=== PATIENT | female | born 1930 | race Caucasian/White ===

== ENCOUNTER → 2017-05-08 | Outpatient (CLI) | payer MEDICARE, OTHER ==
--- NOTE | 2017-05-08 14:09 | CT ---
EXAMINATION TYPE: CT chest wo con DATE OF EXAM: 05/08/2017 COMPARISON: Previous study dated 05/02/2016. 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 Automated Exposure Control for Dose Reduction was Utilized. TECHNIQUE: CT scan of the thorax is performed without IV contrast. FINDINGS: There is calcified granuloma in the right middle lobe. Ill-defined lesion described previou sly in the right middle lobe is seen again today unchanged in appearance. No other parenchymal nodule s are seen. There is no significant axillary, internal mammary, mediastinal or hilar adenopathy. There is no pleu ral or pericardial fluid. The heart is upper limits of normal in size. There is a small hiatal hernia. There is a 2.5 cm simple appearing cyst in the left lobe of the liver. A second, stable 8.4 mm low at tenuating lesion is noted right in the dome of the right lobe of the liver. Questionable lesion adjac ent to the larger lesion first described is not evident on this examination. The gallbladder is been removed. There is a 2.5 cm exophytic lesion arising in the left kidney. This likely represents a cyst. There are sclerotic endplate changes at the T12-L1 level. These are stable. IMPRESSION: 1. NO CHANGE IN THE APPEARANCE OF THE PATIENT'S RIGHT-SIDED PULMONARY NODULES. 2. SMALL HIATAL HERNIA. 3. CYSTIC CHANGE IN THE LIVER AND LEFT KIDNEY COULD BE CONFIRMED WITH ULTRASOUND.
== END | disposition home or self-care (01) ==
LOC: RADCTMAIN 12:54
PROVIDERS: ATTEND Internal Medicine Pulmonary Disease
DX: R91.8 Other nonspecific abnormal finding of lung field (principal)
CPT/HCPCS: 71250

== ENCOUNTER → 2018-04-23 | Outpatient (CLI) | payer MEDICARE, OTHER ==
[2018-04-23 12:21] LABS: Basophils # (A) 0.1 k/uL (0-0.2); Basophils % (A) 1 %; Eosinophils # (A) 0.2 k/uL (0-0.7); Eosinophils % (A) 3 %; HCT 37.9 % (34.0-46.0); HGB 12.3 gm/dL (11.4-16.0); Lymphocytes # (A) 1.7 k/uL (1.0-4.8); Lymphocytes % (A) 30 %; MCH 28.8 pg (25.0-35.0); MCHC 32.4 g/dL (31.0-37.0); MCV 88.8 fL (80.0-100.0); Mean Platelet Volume 7.6; Monocytes # (A) 0.4 k/uL (0-1.0); Monocytes % (A) 7 %; Neutrophils # (A) 3.4 k/uL (1.3-7.7); Neutrophils % (A) 58 %; Platelet Count 331 k/uL (150-450); RBC 4.27 m/uL (3.80-5.40); RDW 13.2 % (11.5-15.5); WBC 5.9 k/uL (3.8-10.6)
[2018-04-23 12:49] LABS: Calcium 10.1 mg/dL (8.4-10.2); Magnesium 2.1 mg/dL (1.6-2.3); Phosphorus 4.2 mg/dL (2.5-4.5); Potassium 4.7 mmol/L (3.5-5.1); Uric Acid 6.6 mg/dL (3.7-7.4)
== END | disposition home or self-care (01) ==
LOC: LABWHC1 11:43
PROVIDERS: ATTEND Family Medicine
DX: E55.9 Vitamin D deficiency, unspecified (principal); N18.3 Chronic kidney disease, stage 3 (moderate)
CPT/HCPCS: 36415; 80048; 82043; 82570; 83735; 83970; 84100; 84550; 85025

== ENCOUNTER → 2018-09-22 | Outpatient (CLI) | payer MEDICARE, OTHER ==
--- NOTE | 2018-09-22 14:24 | US ---
EXAMINATION TYPE: US kidneys/renal and bladder DATE OF EXAM: 09/22/2018 COMPARISON: NONE CLINICAL HISTORY: N18.3 Chronic kidney disease stage 3. EXAM MEASUREMENTS: Right Kidney: 8.6 X 4.3 X 4.7 cm Left Kidney: 8.7 x 4.2 x 3.4 cm Post Void Residual Volume: 8 mL Right Kidney: small cyst 1.0 x 0.6 x 0.8 cm Left Kidney: multiple cysts 1.1 x 0.9 x 1.5 cm, 0.8x 0.6 x 0.7cm, 2.1 x 1.7 x 2.4 cm in the upper pole, 1.8 x 2.2 x 2.4 cm in the mid pole, lateral 2.5 x 2.4 x 2.0 cm Bladder: wnl Bilateral Jets seen: Yes Normal Post Void Residual: No There is bilateral cortical renal thinning and diminished cortical medullary differentiation. There i s no evidence for hydronephrosis at this point in time. No nephrolithiasis is seen. No The urinary bladder is anechoic. Bilateral ureteral jets are seen. IMPRESSION: Sonographic sequela of medical renal disease and bilateral renal cysts. The smaller subcentimeter les ions are probable renal cysts.
== END | disposition home or self-care (01) ==
LOC: RADUSWWP 12:41
PROVIDERS: ATTEND Internal Medicine Nephrology
DX: N28.1 Cyst of kidney, acquired (principal); N18.3 Chronic kidney disease, stage 3 (moderate); N28.9 Disorder of kidney and ureter, unspecified
CPT/HCPCS: 76770

== ENCOUNTER 2018-11-12 11:04 | Emergency (ER) | payer MEDICARE, OTHER ==
[2018-11-12 11:10] VITALS: TEMP 98.8
[2018-11-12] MEDS ORDERED: SODIUM CHLORIDE 0.9% 1,000 ML IV STA (11:30)
--- NOTE | 2018-11-12 11:32 | ED ---
Dizziness HPI - General Chief Complaint: Dizziness Stated Complaint: dizziness/hypertension Time Seen by Provider: 11/12/18 11:10 Source: patient, RN notes reviewed, old records reviewed Mode of arrival: EMS Limitations: no limitations - History of Present Illness Initial Comments: This is a 8-year-old female the ER for evaluation. Today's presenting for evaluation of weakness dizziness lightheadedness, weakness on her feet. Patient denies any recent fevers denies any nausea or vomiting, no recent change in medications. Patient states she has had vertigo before she did take her vertigo pill it did not help still felt weak on her feet lightheaded and dizzy. Patient denies any complaints of chest pain headache shortness of breath or abdominal pain MD Complaint: dizziness, difficulty walking -: hour(s) Timing: gradual onset Description: sense of movement, "room spinning", off-balance, difficulty walking History of Same: Yes History of Trauma: No Severity: moderate Improves With: remaining still Worsens With: movement Associated Symptoms: weakness - Related Data Home Medications Medication Instructions Recorded Confirmed Aspirin EC [Ecotrin Low Dose] 81 mg PO HS 11/12/18 11/12/18 Atorvastatin [Lipitor] 10 mg PO HS 11/12/18 11/12/18 Cholecalciferol [Vitamin D3] 5,000 unit PO DAILY 11/12/18 11/12/18 Losartan Potassium 100 mg PO DAILY 11/12/18 11/12/18 Metoprolol Succinate [Toprol Xl] 50 mg PO HS 11/12/18 11/12/18 Multivit-Min/FA/Lycopen/Lutein 1 tab PO DAILY 11/12/18 11/12/18 [Centrum Silver Tablet] Sertraline [Zoloft] 100 mg PO DAILY 11/12/18 11/12/18 Allergies Allergy/AdvReac Type Severity Reaction Status Date / Time NSAIDS (Non-Steroidal AdvReac ULCERS Verified 11/12/18 11:32 Anti-Inflamma Review of Systems ROS Statement: Those systems with pertinent positive or pertinent negative responses have been documented in the HPI. ROS Other: All systems not noted in ROS Statement are negative. Past Medical History Past Medical History: Hyperlipidemia, Hypertension, Syncope History of Any Multi-Drug Resistant Organisms: None Reported Past Surgical History: Section, Cholecystectomy Past Psychological History: No Psychological Hx Reported Smoking Status: Never smoker Past Alcohol Use History: None Reported Past Drug Use History: None Reported General Exam Limitations: no limitations General appearance: alert, in no apparent distress Head exam: Present: atraumatic, normocephalic, normal inspection Eye exam: Present: normal appearance, PERRL, EOMI. Absent: scleral icterus, conjunctival injection, nystagmus, periorbital swelling ENT exam: Present: normal exam, mucous membranes moist Neck exam: Present: normal inspection. Absent: tenderness, meningismus, lymphadenopathy Respiratory exam: Present: normal lung sounds bilaterally. Absent: respiratory distress, wheezes, rales, rhonchi, stridor Cardiovascular Exam: Present: regular rate, normal rhythm, normal heart sounds. Absent: systolic murmur, diastolic murmur, rubs, gallop, clicks GI/Abdominal exam: Present: soft, normal bowel sounds. Absent: distended, tenderness, guarding, rebound, rigid Extremities exam: Present: normal inspection, full ROM, normal capillary refill. Absent: tenderness, pedal edema, joint swelling, calf tenderness Back exam: Present: normal inspection Neurological exam: Present: alert, oriented X3, CN II-XII intact Psychiatric exam: Present: normal affect, normal mood Skin exam: Present: warm, dry, intact, normal color. Absent: rash Course Vital Signs 11/12/18 11:06 Temperature 98.8 F Pulse Rate 98 Respiratory 18 Rate Blood Pressure 141/84 O2 Sat by Pulse 98 Oximetry - Reevaluation(s) Reevaluation #1: 11/12/18 11:40 Medical record is reviewed noncontributory Reevaluation #2: 11/12/18 11:40 Patient denies any current complaints Reevaluation #3: 11/12/18 12:31 Spoke with patient's and patient's family at length regarding diagnosis, questions are answered Reevaluation #4: 11/12/18 12:31 Spoke with [facility] accepting of transfer EKG Findings - EKG Comments: EKG Findings:: EKG shows sinus rhythm rate of 60, MS 162, QRS 70, QTc 460 Medical Decision Making - Medical Decision Making 88 female the ER for evaluation. Patient was essay for evaluation of dizziness , positive intracranial hemorrhage. Patient will be transferred for neurosurgical evaluation and treatment - Lab Data Result diagrams: 11/12/18 11:14 11/12/18 11:14 Lab Results 11/12/18 11/12/18 11/12/18 Range/Units 11:14 11:14 11:14 WBC 6.7 (3.8-10.6) k/uL RBC 4.30 (3.80-5.40) m/uL Hgb 12.7 (11.4-16.0) gm/dL Hct 38.8 (34.0-46.0) % MCV 90.4 (80.0-100.0) fL MCH 29.5 (25.0-35.0) pg MCHC 32.6 (31.0-37.0) g/dL RDW 13.3 (11.5-15.5) % Plt Count 301 (150-450) k/uL Neutrophils % 59 % Lymphocytes % 29 % Monocytes % 6 % Eosinophils % 4 % Basophils % 1 % Neutrophils # 4.0 (1.3-7.7) k/uL Lymphocytes # 1.9 (1.0-4.8) k/uL Monocytes # 0.4 (0-1.0) k/uL Eosinophils # 0.3 (0-0.7) k/uL Basophils # 0.0 (0-0.2) k/uL PT (9.0-12.0) sec INR (<1.2) APTT (22.0-30.0) sec Sodium 144 (137-145) mmol/L Potassium 5.2 H (3.5-5.1) mmol/L Chloride 107 (98-107) mmol/L Carbon Dioxide 30 (22-30) mmol/L Anion Gap 7 mmol/L BUN 32 H (7-17) mg/dL Creatinine 1.13 H (0.52-1.04) mg/dL Est GFR (CKD-EPI)AfAm 51 (>60 ml/min/1.73 sqM) Est GFR (CKD-EPI)NonAf 44 (>60 ml/min/1.73 sqM) Glucose 100 H (74-99) mg/dL Plasma Lactic Acid Gonsalo (0.7-2.0) mmol/L Calcium 9.8 (8.4-10.2) mg/dL Phosphorus 4.0 (2.5-4.5) mg/dL Magnesium 1.9 (1.6-2.3) mg/dL Total Bilirubin 0.4 (0.2-1.3) mg/dL AST 32 (14-36) U/L ALT 27 (9-52) U/L Alkaline Phosphatase 96 (38-126) U/L Total Creatine Kinase 29 L (30-135) U/L Total Protein 7.0 (6.3-8.2) g/dL Albumin 4.1 (3.5-5.0) g/dL 11/12/18 11/12/18 Range/Units 11:14 12:00 WBC (3.8-10.6) k/uL RBC (3.80-5.40) m/uL Hgb (11.4-16.0) gm/dL Hct (34.0-46.0) % MCV (80.0-100.0) fL MCH (25.0-35.0) pg MCHC (31.0-37.0) g/dL RDW (11.5-15.5) % Plt Count (150-450) k/uL Neutrophils % % Lymphocytes % % Monocytes % % Eosinophils % % Basophils % % Neutrophils # (1.3-7.7) k/uL Lymphocytes # (1.0-4.8) k/uL Monocytes # (0-1.0) k/uL Eosinophils # (0-0.7) k/uL Basophils # (0-0.2) k/uL PT 9.5 (9.0-12.0) sec INR 0.9 (<1.2) APTT 25.0 (22.0-30.0) sec Sodium (137-145) mmol/L Potassium (3.5-5.1) mmol/L Chloride (98-107) mmol/L Carbon Dioxide (22-30) mmol/L Anion Gap mmol/L BUN (7-17) mg/dL Creatinine (0.52-1.04) mg/dL Est GFR (CKD-EPI)AfAm (>60 ml/min/1.73 sqM) Est GFR (CKD-EPI)NonAf (>60 ml/min/1.73 sqM) Glucose (74-99) mg/dL Plasma Lactic Acid Gonsalo 1.0 (0.7-2.0) mmol/L Calcium (8.4-10.2) mg/dL Phosphorus (2.5-4.5) mg/dL Magnesium (1.6-2.3) mg/dL Total Bilirubin (0.2-1.3) mg/dL AST (14-36) U/L ALT (9-52) U/L Alkaline Phosphatase (38-126) U/L Total Creatine Kinase (30-135) U/L Total Protein (6.3-8.2) g/dL Albumin (3.5-5.0) g/dL - Radiology Data Radiology results: report reviewed (CT brain is positive for intracranial hemorrhage), image reviewed Critical Care Time Critical Care Time: Yes Total Critical Care Time: 31 Disposition Clinical Impression: Intracranial hemorrhage Narrative: Left Pontine Brainstem Hemorrhage Disposition: OTHER INSTITUTION NOT DEFINED Condition: Serious Is patient prescribed a controlled substance at d/c from ED?: No Referrals: Vannessa Hercules MD [Primary Care Provider] - 1-2 days - Out of Hospital Transfer - Req. Specs Out of Hospital Transfer - Requested Specifics: Other [facility] ([facility])
--- NOTE | 2018-11-12 12:01 | CT ---
EXAMINATION TYPE: CT brain wo con DATE OF EXAM: 11/12/2018 HISTORY: Terrible headache CT DLP: 1007.4 mGycm. Automated Exposure Control for Dose Reduction was Utilized. TECHNIQUE: CT scan of the head is performed without contrast. COMPARISON: None. FINDINGS: There is hyperdense 1.8 x 1.6 transverse x 1.2 cm craniocaudal dimension focus left super ior arielle worrisome for acute intraparenchymal hemorrhage or hemorrhagic infarct axial image 16, sagit caden image 36 and coronal image 39. There is diffuse ventricular and sulcal prominence consistent with diffuse age-related cerebral atrophy. Atrophy is slightly more prominent over the bilateral frontal lobes . There is low-attenuation in the periventricular white matter consistent with chronic small ve ssel ischemic change. The globes are intact and the visualized sinuses are clear. IMPRESSION: There is 1.8 cm acute left brainstem or superior pontine hemorrhage. Critical results communicated to Dr. Mijares via telephone at time of dictation.
[2018-11-12 12:08] LABS: Basophils % (A) 1 %; Eosinophils # (A) 0.3 k/uL (0-0.7); Eosinophils % (A) 4 %; HCT 38.8 % (34.0-46.0); HGB 12.7 gm/dL (11.4-16.0); Lymphocytes # (A) 1.9 k/uL (1.0-4.8); Lymphocytes % (A) 29 %; MCH 29.5 pg (25.0-35.0); MCHC 32.6 g/dL (31.0-37.0); MCV 90.4 fL (80.0-100.0); Mean Platelet Volume 6.7; Monocytes # (A) 0.4 k/uL (0-1.0); Monocytes % (A) 6 %; Neutrophils % (A) 59 %; Platelet Count 301 k/uL (150-450); RDW 13.3 % (11.5-15.5); WBC 6.7 k/uL (3.8-10.6)
[2018-11-12 12:22] LABS: Albumin 4.1 g/dL (3.5-5.0); Calcium 9.8 mg/dL (8.4-10.2); Magnesium 1.9 mg/dL (1.6-2.3); Potassium 5.2 mmol/L (3.5-5.1); Total Bilirubin 0.4 mg/dL (0.2-1.3)
[2018-11-12 12:25] LABS: INR 0.9 (<1.2); Prothrombin Time 9.5 sec (9.0-12.0)
[2018-11-12 12:30] LABS: Creatine Kinase 29 U/L (30-135)
[2018-11-12] MEDS ORDERED: LABETALOL SYRINGE 5 MG/ML IVP STA (12:38)
[2018-11-12 12:44] LABS: Creatine Kinase MB 0.3 ng/mL (0.0-2.4); Troponin I <0.012 ng/mL (0.000-0.034)
[2018-11-12 13:10] VITALS: BP 177/83; PULSE 66; RESP 13
== END 2018-11-12 13:20 | disposition other institution (70) ==
LOC: EC 11:04
DX: I62.9 Nontraumatic intracranial hemorrhage, unspecified (principal); E78.5 Hyperlipidemia, unspecified; I10 Essential (primary) hypertension; Z79.82 Long term (current) use of aspirin; Z79.899 Other long term (current) drug therapy; Z88.6 Allergy status to analgesic agent
CPT/HCPCS: 36415; 70450; 80053; 82550; 82553; 83605; 83735; 84100; 84443; 84484; 85025; 85610; 85730; 87040; 93005; 96374; 99291

== ENCOUNTER 2021-07-20 10:15 | Day surgery (SDC) | payer MEDICARE, OTHER ==
[2021-07-17 16:01] VITALS: BMI 33.4
--- NOTE | 2021-07-19 23:30 | HP ---
HISTORY AND PHYSICAL CHIEF COMPLAINT: Lesion on the right side of her tongue. HISTORY OF PRESENT ILLNESS: This patient is a pleasant 89-year-old female who was recently seen in my office for evaluation of a lesion on the right side of her tongue which is somewhat sore. The patient states that it has been there for at least a year. She has been seen in the past by Dr. Laurent. He biopsied the area and felt that it was not a malignancy. He had placed her on chlorhexidine mouthwash was had, which she used, but it did not help. She states that the lesion sometimes tends to come and go. 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 It was recommended that the area be excised under general anesthesia. Past medical history reveals that the patient is a nonsmoker and never has used any tobacco products. She has NO KNOWN ALLERGIES TO MEDICATIONS. Her current medications include hydralazine, atorvastatin, metoprolol, sertraline, and Prilosec. Review of systems reveals the cardiovascular system is positive for hypertension. RESPIRATORY: Negative. Gastrointestinal system is GERD. 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 The remainder of review of systems is noncontributory. Previous surgeries include a cholecystectomy, biopsy of the tongue, bilateral cataract surgery. The patient is 2 para 0 2 C-sections 0 miscarriage. PHYSICAL EXAMINATION: This patient is a very pleasant 89-year-old female who was alert, cooperative and well oriented to time and place. HEENT EXAMINATION: The patient is normocephalic. Tympanic membranes are normal. Middle ear space is free of any fluid or infection. Pupils equal, round, reactive to light and accommodation. Extraocular movements are within normal limits. Intranasal examination reveals moderate to severe septal deviation with compensatory hypertrophy of the inferior turbinates and a moderate amount of mucus on the mucous membrane draining down the posterior pharynx. Examination of oropharynx with attention to the right lateral border of tongue reveals patient has a very plaque-like area located on the right lateral border of the tongue beginning from the mid portion and extending posteriorly. No other suspicious lesions are noted. Cranial nerves 2 through 12 and the remainder of the head and neck exam are all within normal limits. Chest/cardiovascular: Both lung vicente are clear to percussion and auscultation. Patient is in regular sinus rhythm. S1 and S2 are present without any murmurs, S3s or S4s. Peripheral pulses are bilaterally symmetrical. Abdomen: There is no evidence any masses, megaly or tenderness. The abdomen is soft. Skin is unremarkable. Musculoskeletal/neurological are within normal limits. Pelvic rectal exam is deferred at this time because the patient has this done on a regular basis at her family physician's office. The remainder of physical exam is unremarkable. IMPRESSION: Lesion of the right lateral border of the tongue. PLAN: The patient is scheduled undergo excision of lesion of the right lateral border of the tongue under general anesthesia in a.m. ATTENTION RNS IN THE PRE-SURGICAL AREA: I have ordered for this patient to receive 1 gram of Ofirmev IV to be given once an intravenous line has been established. In addition, I have ordered for this patient to receive 1 gram of Ancef IV, to be given once an intravenous line has been established. If the pharmacy department sends a different pre-surgical prophylactic antibiotic to the pre-surgical area for this patient, please return that medication and cancel that order. Also make sure that the patient's account is credited appropriately. I have discussed the risks, benefits and alternative therapies for the above-mentioned procedure and for both sedation/analgesia as well as necessary blood product administration, if indicated, as they pertain to this patient. The patient has indicated his or her understanding and acceptance of the risks and procedures discussed. MMODL / IJN: [id number] /
[~2021-07-20 10:15] MED LIST: DEXAMETHASONE SOD PHOSPHATE 4 MG/ML 1 ML VIAL IV ONE; HYDROmorphone 0.5 MG/0.5 ML SYRINGE IVP PRN; LACTATED RINGERS 1,000 ML IV SCH; LIDOCAINE 1% (10MG/ML) FOR IV START INTRADERMA PRN; MIDAZOLAM 2 MG/2 ML VIAL IV PRN; ONDANSETRON 4 MG/2 ML VIAL IVP ONE; Pre Op ABX Message 1 EACH MISC MISCELLANE ONE
[2021-07-20 10:49] VITALS: TEMP 97.9
[2021-07-20] MEDS ORDERED: ACETAMINOPHEN IV (For NPO) 1,000 MG in EMPTY BAG 1 BAG IVPB ONE (11:40)
[2021-07-20] MEDS ORDERED: PROPOFOL 10 MG/ML 20 ML VIAL IV ONE (12:13)
[2021-07-20] MEDS ORDERED: SUCCINYLCHOLINE CHLORIDE 100 MG/5 ML SYR IV ONE (12:13)
[2021-07-20] MEDS ORDERED: fentaNYL (PF) 50 MCG/ML 2 ML AMP ONE (12:13)
[2021-07-20] MEDS ORDERED: DEXAMETHASONE SOD PHOSPHATE 10 MG/ML 1 ML VIAL ONE (12:13)
[2021-07-20] MEDS ORDERED: LIDOCAINE 1% INJ 10MG/ML (20 ML MDV) ONE (12:13)
[2021-07-20] MEDS ORDERED: HYDROmorphone 0.5 MG/0.5 ML SYRINGE IVP ONE (13:57)
[2021-07-20 14:30] VITALS: RESP 16
[2021-07-20 15:18] VITALS: BP 144/69; PULSE 63
--- NOTE | 2021-07-21 05:25 | OP ---
OPERATIVE REPORT DATE OF SURGERY: 07/20/2021 PREOPERATIVE DIAGNOSIS: 4 -6 mm lesion of the right lateral border of the tongue. Final pathology is pending. POSTOPERATIVE DIAGNOSIS: 4 -6 mm lesion of the right lateral border of the tongue. Final pathology is pending. ANESTHESIA: General. OPERATIVE PROCEDURE: Excision of lesion of the right lateral border of the tongue with complex multiple layer repair. OPERATING SURGEON: Dr. Cervantes. COMPLICATIONS: None. ESTIMATED BLOOD LOSS: Less than 20 mL. OPERATIVE PROCEDURE: The patient is placed on the operating table in supine position and after uneventful induction endotracheal intubation, satisfactory general anesthesia was obtained. Next, the lesion in question which was located on the right lateral posterior lateral border of the tongue was inspected and identified. Following this, a dental bite block was placed in the right buccal sulcus. Next, the tip of the tongue was grasped with a towel clip and pulled anteriorly and laterally, thus exposing the lesion. Next using a #15 scalpel blade, the lesion was excised in an elliptical fashion cutting through the mucous membrane and also some of the muscle tissue was excised. The specimen was sent in 1 piece to Pathology for permanent sectioning. Hemostasis was obtained by using electrocautery. The wound defect was closed in multiple layers with the muscular layer being closed using 4-0 rapid absorbing Vicryl in interrupted buried fashion. The mucous membrane was closed using 4-0 rapid absorbing Vicryl in an interrupted buried fashion, and finally the final closure was done with 3-0 chromic in interrupted buried fashion and it was buttressed with several 4-0 rapid absorbing Vicryl in an interrupted buried fashion. The patient was given 10 mg of Decadron to reduce any swelling of the tongue postoperatively. At this point, the procedure was terminated. Estimated blood loss less was less than 20 mL. There were no intraoperative complications. The patient tolerated the procedure well and was returned to recovery room in satisfactory condition. Final pathology is pending. MMODL / IJN: [id number] /
== END 2021-07-20 15:27 | disposition home or self-care (01) ==
LOC: OR 10:15
PROVIDERS: ATTEND Otolaryngology
DX: K14.9 Disease of tongue, unspecified (principal)
CPT/HCPCS: 41112; 88305; J1100 ×2; J0690; J2405; J2001; J3010; J0131; J0330; J2704; J1170